=== PATIENT | female | born 1990 | race Caucasian/White ===

== ENCOUNTER 2024-10-24 14:25 | Outpatient (CLI) | payer OTHER, SELFPAY ==
--- NOTE | ~2024-10-24 | XR_ITS ---
Thoracic spine: Clinical Indication: Back pain AP and lateral views were performed. No fracture is seen. There is normal alignment of the vertebrae. The intervertebral disc spaces appe ar normal. Paravertebral soft tissues appear normal. Impression: No significant abnormalities noted. Reviewed, dictated and finalized at [facility]. Impression: No significant abnormalities noted.
--- OUTSIDE RECORDS SUMMARY | 2024-10-24 14:30 | XMS_ITS | Clinical Summary ---
Author Organization [facility] Address [address] [address] [place] [address] Phone Care Team Providers Care Plaster Molder Name Role Phone Renuka Houser Primary Care Provider [phone] Allergies No known active allergies Medications omeprazole (PriLOSEC) 40 mg Capsule, Delayed Release(E.C.) Take 40 mg by mouth daily. Active citalopram (CeleXA) 20 mg tablet Take 20 mg by mouth daily. Active lithium carbonate (ESKALITH IR) 150 mg Capsule Take 150 mg by mouth daily. Active cetirizine (ZyrTEC) 10 mg tablet Take 10 mg by mouth daily. Active ALPRAZolam (XANAX) 0.5 mg tablet 0.5 mg Continuous as needed. Active Social History Tobacco Use Types Packs/Day Years Used Date Smoking Tobacco: Former Cigarettes Smokeless Tobacco: Never Comments:Occasionally smokes a cigar Alcohol Use Standard Drinks/Week Comments Yes 18 (1 standard drink = 0.6 oz pu re alcohol) Once a month Sex and Gender Information Value Date Recorded Sex Assigned at Not on file Legal Sex Male 11:14 AM [facility] Gender Identity Not on file Sexual Orientation Not on file Last Filed Vital Signs Vital Sign Reading Time Taken Comments Blood Pressure 122/80 07/25/2021 8:41 AM [facility] Pulse 78 07/25/2021 8:42 AM [facility] Temperature 36 C (96.8 F) 07/25/2021 8:42 AM [facility] Respiratory Rate 16 07/25/2021 8:42 AM [facility] Oxygen Saturation 96% 07/25/2021 8:42 AM [facility] Inhaled Oxygen Concentration - - Weight 127 kg (280 lb) 07/23/2021 12:36 PM [facility] Height 175.3 cm (5' 9) 07/23/2021 12:36 PM [facility] Body Mass Index 41.35 07/23/2021 12:36 PM [facility] Plan of Treatment Health Maintenance Due Date Last Done Comments DTAP/TDAP/TD VACCINES (1 - Tdap) 10/26/2007 HEPATITIS B VACCINES (1 of 3 - 19+ 3-dose series) 10/26/2007 INFLUENZA VACCINE (#1) 2023 HPV VACCINES Aged Out No longer eligi ble based on patient's age to complete this topic Insurance [employer] ACCESS CHOICE Advance Directives For more information, please contact: [phone] * Full Code (Latest Code Status on File) Date Activated Date Inactivated Comments 07/25/2021 7:00 AM 07/25/2021 11:11 AM Care Teams Plaster Molder Relationship Specialty Start Date End Date Renuka Houser PA PCP - General Physician Diagnostic Technologist 07/25/21
--- OUTSIDE RECORDS SUMMARY | 2024-10-24 14:30 | XMS_ITS | Data Portability ---
Author Organization [facility] Address [address] [facility] [place] [address] Care Team Providers Care Insulation Technician Name Role Phone CORIE SARAVIA Primary Care Provider Unavailab le Assessment Encounter Date Assessment Date Assessment LastModified by Organization Details LastModified Time 09/28/2024 09/28/2024 prediabetes present with a hemoglobin A1c of 5.9%. He also has 1 liver enzyme just slightly elevated. Working on the diet will help all of this. Overall cholesterol is stable with just mild elevation. His thyroid levels were both normal. Not available 09/28/2024 10:07:30 Plan of Treatment Reminders Order Date Submit Date Provider Last Modified By Organization Details Last Modified Time Details Appointments None recorded. Lab TSH + free T4, serum 2024 025 [email or web address] [facility], [address], [place], [address], 5 12:35:17 lipid panel, serum 2024 025 [email or web address] [facility], [address], [place], [address], 5 12:35:30 CBC w/ auto diff 2024 025 MICHELLE Pope, [address], [place], [address], 5 00:25:00 CMP, serum or plasma 2024 025 MICHELLE Pariscotaryn, [address], [place], [address], 00:24:59 hemoglobin A1c, QN, blood 2024 025 [email or web address] [facility], [address], [place], [address], 12:35:25 insulin, serum 2024 025 [facility], [address], [place], [address], 12:35:54 Referral None recorded. Procedures None recorded. Surgeries None recorded. Imaging XR, thoracic spine, 2 view 2024 025 [email or web address] [facility], [address], [place], [address], 10:39:35 Medication Orders propranolo l 10 mg tablet 2024 025 [id number], [address], [place], [id number], 10:24:04 meloxicam 15 mg tablet 2024 025 [id number], [address], [place], [id number], 10:18:11 omeprazole 40 mg capsule,de layed release 2024 025 [email or web address] [facility] #[id number], [address], [place], [phone], 09:50:40 Patient TargetsNo targets recorded. Patient Instructions Encounter Date Encounter Id Patient Instructions Last Modified By Organization Details Last Modified Time 06/07/2024 [id number] A healthy lifestyle: care instructions Not available 06/07/2024 10:16:36 09/28/2024 [id number] healthy upper back: exercises Not available 09/28/2024 10:17:42 back stretches: exercises Not available 09/28/2024 10:17:42 A healthy lifestyle: care instructions Not available 09/28/2024 10:17:42 Reason for Referral None Reported. Results Created Date Observation Date Name Description Value Unit Range Abnormal Flag Note LastModifiedBy Organization Detail LastModifiedTime Result Notes None recorded. Problems Name Problem SNOMED Code Status Onset Date Resolution Date Notes Provider Name and Address Organization Details Recorded Time Obesity 994861791 Active 2024 JOSE ANTONIO Vazquez Attn: Suman crenshaw,[address] [place], [place], [address] [place] [address] 2, [facility] 5 10:12:58 Long-term drug therapy Active 2024 JOSE ANTONIO Vazquez Attn: Suman g,[address] [place], [place], [address] [place] [address] 2, [facility] 5 09:38:47 Gastroesoph ageal reflux disease without esophagitis 949202162 Active 2024 JOSE ANTONIO Vazquez Attn: Suman crenshaw,[address] [place], [place], [address] [place] [address] 2, [facility] 5 09:38:53 Positive screening for depression on PHQ-9 (Patient Health Questionnai re 9) 0553404480684 00 Active 2024 JOSE ANTONIO Vazquez Attn: Danitain g,[address] [place], [address], [place] - [facility] 5 09:39:31 Body mass index 30+ - obesity 593852863 Active 2024 Teressa Rojas MA null, [place] - [facility] 5 09:51:43 Obese class I 3401903586637 07 Active 2024 JOSE ANTONIO Vazquez Attn: Suman crenshaw,[address] [place], [address], [facility] 10:16:44 Anxiety attack 613616460 Active 2024 JOSE ANTONIO Vazquez Attn: Suman crenshaw,[address], [place], [address], [facility] - [facility] 22:25:12 Problem Notes None recorded. Medical Equipment None Reported. Allergies No known drug allergies Medications Name Sig Start Date Stop Date Status Note LastModified by Organization Details LastModified Time buspirone 5 mg tablet TAKE 1 TABLET BY MOUTH TWICE DAILY FOR ANXIETY active Not Available Not Available No t Available meloxicam 15 mg tablet Take 1 tablet every day by oral route as needed. 2024 active Not Available Not Available Not Avai lable phentermine 37.5 mg tablet TAKE 1 TABLET BY MOUTH EVERY DAY 06/07 completed Not Available Not Available Not Available omeprazole 40 mg capsule,katina yed release Take 1 capsule by oral route for 30 days. active Not Available Not Available No t Available propranolol 10 mg tablet TAKE 1-2 TABLETS BY MOUTH NEEDED FOR ANXIETY BREAKTHR OUGH. MAX OF 40MG IN 24 HOURS active Not Available Not Available No t Available citalopram 20 mg tablet TAKE 1 TABLET DAILY 06/07 completed Not Available Not Available Not Available amoxicillin 875 mg-potassium clavulanate 125 mg tablet TAKE 1 TABLET BY MOUTH EVERY 12 HOURS 06/07 completed Not Available Not Available Not Available omeprazole 06/07 completed Not Available Not Available Not Available Vitals Date Recorded Respiratory rate Systolic blood pressure Diastolic blood pressure Provider Name and Address Organization Details Last Updated DateTime 06/07/2024 18 /min 110 mm[Hg] 80 mm[Hg] JOSE ANTONIO Vazquez Attn: Pattie, [address] [facility], [place], [address], [place] - [facility] 06/07/2024 10:10:14 Date Recorded Body weight Body mass index (BMI) Body height Oxygen saturation Oxygen saturation in Arterial blood by Pulse oximetry Heart rate Systolic blood pressure Diastolic blood pressure Provider Name and Address Organization Details Last Updated DateTime 872943. 76 g 38.5 kg/m2 177.8 cm 97 % 97 % 63 /min 112 mm[Hg] 82 mm[Hg] Teressa Rojas MA [place] - [facility] 09:54:09 Date Recorded Body height Body mass index (BMI) Body weight Oxygen saturation Oxygen saturation in Arterial blood by Pulse oximetry Heart rate Respiratory rate Systolic blood pressure Diastolic blood pressure Provider Name and Address Organization Details Last Updated DateTime 177.8 cm 32.3 kg/m2 556628. 28 g 99 % 99 % 73 /min 18 /min 112 mm[Hg] 82 mm[Hg] Teressa Rojas MA [place] - [facility] 09:52:43 Social History Question Answer Notes LastModified by Organizat ion Details LastModified Time Tobacco Smoking Status Never Smoker Teressa Rojas MA null, [facility] 06/07/2024 09:52:12 Do You Have An Advance Directive? No Information not available 06/07/2024 Are You Blind Or Do You Have Difficulty Seeing? No Contacts Information not available 06/07/2024 What Is Your Level Of Caffeine Consumption? Heavy Information not available 06/07/2024 In The 14 Days Before Symptom Onset, Have You Had Close Contact With A Laboratory-confir med COVID-19 While That Case Was Ill? No Information not available 06/07/2024 In The 14 Days Before Symptom Onset, Have You Had Close Contact With A Person Who Is Under Investigation For COVID-19 While That Person Was Ill? No Information not available 06/07/2024 Have You Been To An Area Known To Be High Risk For COVID-19? No Information not available 06/07/2024 Are You Deaf Or Do You Have Serious Difficulty Hearing? No Information not available 06/07/2024 What Type Of Diet Are You Following? REGULAR Information not available 06/07/2024 What Was The Date Of Your Most Recent Tobacco Screening? 09/28/2024 Information not available 09/28/2024 What Is Your Relationship Status? Information not available 06/07/2024 Do You Use Your Seat Belt Or Car Seat Routinely? Yes Information not available 06/07/2024 Do You Have Smoke And Carbon Monoxide Detectors In Your Home? Yes Information not available 06/07/2024 Do You Use Sunscreen Routinely? No Information not available 06/07/2024 Has Tobacco Cessation Counseling Been Provided? No Information not available 06/07/2024 How Many Years Have You Used E-cigarettes Or Vape? 8 Information not available 06/07/2024 Sex: Male Functional Status Question Answer Note LastModified by Organizat ion Details LastModified Time Do you use any illicit or recreational drugs? No Information not available 06/07/2024 Do you or have you ever used any other forms of tobacco or nicotine? No Information not available 09/28/2024 What is your level of alcohol consumption? None Information not available 06/07/2024 Do you or have you ever used smokeless tobacco? Never used smokeless tobacco Information not available 06/07/2024 Are you currently employed? Yes Information not available 06/07/2024 Are you able to care for yourself? Yes Information not available 06/07/2024 Do you or have you ever used e-cigarettes or vape? Current user of electronic cigarettes Information not available 06/07/2024 What is your exercise level? None Information not available 06/07/2024 Mental Status None recorded. Family History Relationship Description Onset Age of this Age Resolved Age Notes LastModified by Organization Details LastModified Time Father Depressive disorder [email or web address] Not available 2024 09:47:42 Father Diabetes mellitus [email or web address] Not available 2024 09:47:47 Father Hypercholest erolemia [email or web address] Not available 2024 09:47:52 Medical History Condition Response Coronary Artery Disease N Other N Atrial Fibrillation N High Blood Pressure N Depression Y COPD N Blood Clots N Anxiety Disorder Y Muscle, Joint, or Bone Problems N Acid Reflux (GERD) Y Cancer N Stroke N High Cholesterol N Liver Disease N Headaches N Kidney or Bladder Problems N Thyroid Problems N GI Problems N Have you had a mammogram in the last yea r? N Skin Problems N Anemia N Heart Attack ([place]) N Diabetes N Seizures/Epilepsy N Have you had a colonoscopy in the last 1 0 years? N Asthma N Allergies Y Have you had a PSA blood test in the las t year? N Hepatitis N Heart Failure N Osteoporosis N Past Encounters Encounter ID Performer Location Encounter Start Date Encounter Closed Date Diagnosis/Indication Diagnosis SNOMED-CT Code Diagnosis ICD10 Code Diagnosis Note [id number] Stephan Bejarano MD [facility] [employer] [facility] [employer] [address] [place] [address] 06/07/2024 09:32:42 06/07/2024 11:16:30 Adult health examination 898992464 Z00.00 Annual wellness exam completed and fasting labs ordered for annual review Cholesterol screening 27 8083668 Z13.220 Diabetes m ellitus screening 767811524 Z13.1 Thyroid di sorder screening 713481925 Z13.29 Body mass index 30+ - obesity 190537312 Z68.38 BMI is 38.5. Fasting insulin level is ordered Obesity 516959984 E66.9 discussed healthy diet, exercise, controllin g carbohydra richa and added sugars in the diet Long-term drug therapy 651136620 Z79.891 CBC and CMP due Gastroesop hageal reflux disease without esophagitis 375621196 K21.9 Refill omeprazole 40 mg daily for acid reflux management Positive s creening for depression on PHQ-9 (Patient Health Questionnaire 9) 4328323630 22102 Z13.31 Patient scored a 7 on screening today. He does not have any acute concerns with any mental health questions. He feels overall stable. He does have a history of taking citalopram medication but is not interested in restarting that at this time. [id number] Stephan Bejarano MD [facility] [employer] [address] [place] [address] 09/28/2024 09:44:23 09/28/2024 11:24:37 Acute thoracic back pain 133640404 M54.6 Start meloxicam 15 mg daily with food and start all home stretches for the back. Check a plain film x-ray of the thoracic spine Obese class I 6887447122 22023 E66.811 discussed healthy diet, exercise, controllin g carbohydra richa and added sugars in the diet Anxiety attack 588368876 F41.0 For PRN use take propranolo l 10 mg to 20 mg as needed for anxiety breakthrou gh Health Concerns Section Related Observation LastModified by Organization Detai ls LastModified Time None Recorded Concern Status LastModified by Organization Details LastModified Time None Recorded Advance Directives Directive N: Payers Encounter Date Sequence Insurance Name Policy Number Policy Peralta Covered Member ID Peralta Member ID Guarantor Name 06/07/2024 1 [facility] [id number] Carlos A Vicente [id number] Marques Vicente 09/28/2024 [facility] [id number] Carlos A Vicente [id number] Marques Vicente Notes Date Note Type Note Provider Name and Address Organization Details Recorded Time 06/07/2024 text/html Reflux/GERDRepor te d bypatient.Notes:Jose Antonio hunt is stable with his acid reflux on omeprazole 40 mg daily. JOSE ANTONIO Vazquez Attn: [address] [place], [address], [facility] 06/24/2024 09:39:47 09/28/2024 text/html Anxiety/Depressi on Reported bypatient.Quality: symptoms worse during the day;increased anxiety Severity:denies suicidal ideations; able to maintain relationships;inte rference with household activities;interfe rence with sleep;interference with work Duration:frequent; symptoms lasting over 2 weeks Onset/Timing:still present Context:no major life stressors Modifying Factors:social support Associated Symptoms:denies homicidal ideations; no significant weight gain; no significant weight loss; no visual/auditory hallucinations; no delusions; no shortness of breath; mood good; no crying spells; appetite good; energy good; no apathy; maintaining functionality;anxi etyBack PainReported bypatient.Location :pain is not radiating Quality:sharp;dull Severity:worsening ;severe (8-10) Duration:acute Onset/Timing:recur rent episode Context:overuse; prior back problems Aggravating Factors:movement/p ositioning;twistin g;flexing back;extending back Associated Symptoms:no fever; no weak limbs; no numbness of the legs/feet; no tingling; no incontinence; no shortness of breathNotes:Pain in the middle back bilaterally JOSE ANTONIO Vazquez Attn: Accounting,[address] [facility], [place], [address], [facility] 10/16/2024 22:25:27
== END 2024-10-24 14:26 | disposition home or self-care (01) ==
PROVIDERS: PCP Physician Assistant; Visit Provider Physician Assistant
DX: M54.6 Pain in thoracic spine (principal)
CPT/HCPCS: 72070